=== PATIENT | female | born 1945 | race Native Hawaiian/Other Pacific Islander ===

== ENCOUNTER 2018-03-17 10:59 | Emergency (ER) | payer OTHER ==
[2018-03-17 11:06] VITALS: BP 187/104; PULSE 71; RESP 18; TEMP 98.2; O2SAT 98
--- NOTE | 2018-03-17 11:28 | C.PDOC ---
History Of Present Illness 72 y/o female presents to the ED complaining of a bruise to her left wrist, noticed today. Patient is an employee here and states while at work, she was pulling out a heavy box of vegetables and then noticed a bruise on her arm. She denies any blunt trauma or fall. States that the box did not fall on her. Denies anticoagulant use. Otherwise patient denies any fever, numbness, or weakness. Time Seen by Provider: 03/17/18 11:12 Chief Complaint (Nursing): Upper Extremity Problem/Injury History Per: Patient History/Exam Limitations: no limitations Onset/Duration Of Symptoms: Hrs Current Symptoms Are (Timing): Still Present Past Medical History Reviewed: Historical Data, Nursing Documentation, Vital Signs Vital Signs: Last Vital Signs Temp 98.2 F 03/17/18 11:03 Pulse 71 03/17/18 11:03 Resp 18 03/17/18 11:03 BP 187/104 H 03/17/18 11:03 Pulse Ox 98 03/17/18 11:27 - Medical History PMH: HTN Family History: States: No Known Family Hx - Social History Hx Alcohol Use: No Hx Substance Use: No - Immunization History Hx Tetanus Toxoid Vaccination: No Hx Influenza Vaccination: Yes Hx Pneumococcal Vaccination: No Review Of Systems Except As Marked, All Systems Reviewed And Found Negative. Constitutional: Negative for: Fever, Chills Skin: Positive for: Bruising (to left wrist) Neurological: Negative for: Weakness, Numbness Physical Exam - Physical Exam Appears: Non-toxic, No Acute Distress Skin: Warm, Dry Head: Atraumatic, Normacephalic Eye(s): bilateral: Normal Inspection Oral Mucosa: Moist Neck: Normal ROM, Supple Chest: Symmetrical Extremity: Normal ROM (with full ROM of the left wrist and all digits), No Tenderness, Capillary Refill (less than 2 sec), No Swelling, Other (2.5 cm area of ecchymosis to the volar aspect of left wrist) Pulses: Left Radial: Normal, Right Radial: Normal Neurological/Psych: Oriented x3, Normal Speech Gait: Steady ED Course And Treatment O2 Sat by Pulse Oximetry: 98 (RA) Pulse Ox Interpretation: Normal Medical Decision Making Medical Decision Making: Impression: Left wrist ecchymosis Plan: Patients arm appears otherwise normal, with no tenderness or swelling on exam. Diagnostic testing is not warranted at this time as patient does not have history of trauma, or swelling/tenderness on exam. Offered patient pain medication, but she declines. Patient is stable for discharge home. Advised to return to the ER for any worsening symptoms. Disposition - Disposition Referrals: Cornelio De La Cruz MD [Staff Provider] - Disposition: HOME/ ROUTINE Disposition Time: 11:26 Condition: GOOD Additional Instructions: Follow up with the medical doctor/clinic within 1-2 days. Return if worsened. Instructions: Contusion (DC) Forms: [employer] (Maori) - POA Present On Arrival: None - Clinical Impression Clinical Impression: Bruise - PA / [employer] / Resident Statement MD/DO has reviewed & agrees with the documentation as recorded. - Scribe Statement The provider has reviewed the documentation as recorded by the Scribe (Minda Dowling) All medical record entries made by the Scribe were at my direction and personally dictated by me. I have reviewed the chart and agree that the record accurately reflects my personal performance of the history, physical exam, medical decision making, and the department course for this patient. I have also personally directed, reviewed, and agree with the discharge instructions and disposition.
== END 2018-03-17 11:38 | disposition home or self-care (01) ==
LOC: C.ER 10:59
DX: S60.212A Contusion of left wrist, initial encounter (principal); X50.9XXA Other and unspecified overexertion or strenuous movements or postures, initial encounter; Y92.239 Unspecified place in hospital as the place of occurrence of the external cause; Y99.0 Civilian activity done for income or pay; I10 Essential (primary) hypertension